=== PATIENT | female | born 1975 | race Caucasian/White ===

== ENCOUNTER 2020-12-14 17:32 | Emergency (ER) | payer BC ==
[~2020-12-14] VITALS: Ht 157.4 cm; Wt 76.2 kg
== END 2020-12-14 21:12 | disposition home or self-care (01) ==
LOC: ED 17:32
DX: R51.9 Headache, unspecified (principal); M25.551 Pain in right hip; R10.31 Right lower quadrant pain; Z88.8 Allergy status to other drugs, medicaments and biological substances